=== PATIENT | female | born 1975 | race Caucasian/White ===

== ENCOUNTER 2024-06-13 13:02 | Emergency (ER) | payer OTHER ==
[~2024-06-13] VITALS: Ht 160 cm; Wt 57.2 kg
[2024-06-13 13:02] VITALS: TEMP 98.7
[2024-06-13] MEDS ORDERED: diphenhydrAMINE HCL 50 MG/ML VIAL ONE (13:36)
[2024-06-13] MEDS ORDERED: ACETAMINOPHEN ES 500 MG TABLET ONE (13:36)
[2024-06-13] MEDS ORDERED: METOCLOPRAMIDE HCL 10 MG/2 ML VIAL ONE (13:36)
[2024-06-13] MEDS: IV NS 0.9% 1,000 ML BAG IV ONE (13:40)
[2024-06-13] MEDS: diphenhydrAMINE HCL 50 MG/ML VIAL IV ONE (13:41)
[2024-06-13] MEDS: ACETAMINOPHEN ES 500 MG TABLET PO ONE (13:42)
[2024-06-13] MEDS: METOCLOPRAMIDE HCL 10 MG/2 ML VIAL IV ONE (13:43)
[2024-06-13 16:09] VITALS: BP 125/75; O2SAT 99
== END 2024-06-13 15:45 | disposition home or self-care (01) ==
LOC: ER 13:10
DX: G43.909 Migraine, unspecified, not intractable, without status migrainosus (principal); R61 Generalized hyperhidrosis; F41.9 Anxiety disorder, unspecified; Z88.0 Allergy status to penicillin
CPT/HCPCS: 99284; 96374; 96361; 96375; J1200; J2765; J7030